=== PATIENT | female | born 1985 | race Caucasian/White ===

== ENCOUNTER 2022-05-05 17:54 | Observation (INO) | payer BC ==
[~2022-05-05] VITALS: Ht 160 cm; Wt 57.6 kg
[2022-05-05 18:00] VITALS: BP 119/77
[2022-05-05 18:38] LABS: BILIRUBIN,URINE NEGATIVE (NEGATIVE); COLOR,URINE YELLOW (YELLOW); GLUCOSE, URINE (UA) NEGATIVE (NEGATIVE); KETONES,URINE NEGATIVE (NEGATIVE); LEUKOCYTE ESTERASE ,URINE NEGATIVE (NEGATIVE); NITRATE,URINE NEGATIVE (NEGATIVE); OCCULT BLOOD,URINE LARGE (NEGATIVE); PH,URINE 6.5 (5.0-8.0); PROTEIN,URINE NEGATIVE (NEGATIVE); UROBILINOGEN,URINE 0.2 mg/dL (0.2-1.0)
[2022-05-05 18:50] LABS: APPEARANCE,URINE HAZY (CLEAR)
[2022-05-05 20:57] LABS: BACTERIA,URINE Few /HPF (None Seen); RBC,URINE None Seen /HPF (0-1); WBC,URINE 0-1 /HPF (0-1)
== END 2022-05-05 19:40 | disposition home or self-care (01) ==
LOC: EDH 17:54 → LDH 18:15
PROVIDERS: ADMIT Obstetrics & Gynecology; ATTEND Obstetrics & Gynecology
DX: Z34.83 Encounter for supervision of other normal pregnancy, third trimester (principal); Z3A.39 39 weeks gestation of pregnancy
CPT/HCPCS: 59025; 81001; G0378; G0379

== ENCOUNTER 2022-05-10 21:27 | Inpatient (IN) | payer BC ==
[~2022-05-10] VITALS: Ht 160 cm; Wt 58.1 kg
[2022-05-10] MEDS ORDERED: DINOPROSTONE 10 MG VAGINAL SUPP VG SCH (21:30)
[2022-05-10] MEDS ORDERED: PROMETHAZINE HCL 25 MG/ML 1ML AMPULE IM PRN (21:30)
[2022-05-10] MEDS ORDERED: ROPIVACAINE 0.2% 100ML VIAL 100 ML EP SCH (21:30)
[2022-05-10] MEDS ORDERED: NALOXONE HCL 0.4 MG/1 ML ML IV PRN (21:30)
[2022-05-10] MEDS ORDERED: EPHEDRINE SULFATE 50 MG/ML AMPULE IVP PRN (21:30)
[2022-05-10] MEDS ORDERED: LACTATED RINGERS 500 ML 500 ML IV PRN (21:30)
[2022-05-10] MEDS ORDERED: MEPERIDINE-PF 50 MG/ML SYG IVP PRN (21:30)
[2022-05-10] MEDS ORDERED: PREN-196 PO (22:19)
[2022-05-10] MEDS: LACTATED RINGERS 1000ML 1,000 ML IV PRN (23:01)
[2022-05-10 23:24] LABS: MEAN CORPUSCULAR HEMOGLOBIN 28.8 pg (27.0-33.0); MEAN CORPUSCULAR HGB CONC 33.3 g/dL (32.0-36.0); MEAN CORPUSCULAR VOLUME 86.3 fL (79-99); RED BLOOD CELL COUNT(AUTO) 4.17 MIL/uL (4.00-5.50); WHITE BLOOD COUNT (AUTO) 9.8 K/uL (4.8-10.8)
[2022-05-10 23:27] LABS: APPEARANCE,URINE SL CLOUDY (CLEAR); BILIRUBIN,URINE NEGATIVE (NEGATIVE); COLOR,URINE YELLOW (YELLOW); GLUCOSE, URINE (UA) NEGATIVE (NEGATIVE); KETONES,URINE NEGATIVE (NEGATIVE); LEUKOCYTE ESTERASE ,URINE NEGATIVE (NEGATIVE); NITRATE,URINE NEGATIVE (NEGATIVE); OCCULT BLOOD,URINE NEGATIVE (NEGATIVE); PROTEIN,URINE NEGATIVE (NEGATIVE); UROBILINOGEN,URINE 0.2 mg/dL (0.2-1.0)
[2022-05-10 23:32] LABS: RBC,URINE None Seen /HPF (0-1); WBC,URINE 0-1 /HPF (0-1)
[2022-05-10 23:33] LABS: AMORPHOUS SEDIMENT,UR Moderate /LPF (None Seen); BACTERIA,URINE Few /HPF (None Seen); SQUAMOUS EPITHELIAL CELL,UR 0-2 /HPF (0-2)
[2022-05-11] MEDS: LACTATED RINGERS 1000ML 1,000 ML IV PRN ×2 (01:40→09:48)
[2022-05-11] MEDS ORDERED: OXYTOCIN-LR 20 UNITS/1000 ML 1,000 ML IV SCH ×2 (04:00→12:30)
[2022-05-11 10:13] LABS: RAPID PLASMA REAGIN NONREACTIVE (NONREACTIVE)
[2022-05-11] MEDS ORDERED: DIPH,PERTUSS(ACELL),TET VAC/PF 0.5 ML VIAL IM PRN (12:30)
[2022-05-11] MEDS ORDERED: MEASLES/MUMPS/RUBELLA VACCINE, LIVE 0.5 ML/VIAL SQ PRN (12:30)
[2022-05-11] MEDS ORDERED: ACETAMINOPHEN 325 MG TAB PO PRN (12:30)
[2022-05-11] MEDS ORDERED: ACETAMINOPHEN WITH CODEINE 1 TAB TAB PO PRN (12:30)
[2022-05-11] MEDS ORDERED: BENZOCAINE/LANOLIN/ALOE VERA 60 ML AEROSOL TP PRN (12:30)
[2022-05-11] MEDS ORDERED: LANOLIN 30GM OINTMENT TP PRN (12:30)
[2022-05-11] MEDS ORDERED: WITCH HAZEL 1 PAD TP PRN (12:30)
[2022-05-11 13:30] VITALS: BP 128/80
[2022-05-11] MEDS: IBUPROFEN 600 MG TABLET PO PRN ×2 (14:46→20:43)
[2022-05-11 16:27] VITALS: BP 134/77
[2022-05-11 19:10] VITALS: BP 122/78
[2022-05-11] MEDS: DOCUSATE SODIUM 100 MG CAP PO SCH (20:43)
[2022-05-11 22:50] VITALS: BP 116/63
[2022-05-12 02:50] VITALS: BP 102/63
[2022-05-12] MEDS: IBUPROFEN 600 MG TABLET PO PRN (06:29)
[2022-05-12 06:35] LABS: HEMATOCRIT 33.9 % (36-48); MEAN CORPUSCULAR HEMOGLOBIN 28.7 pg (27.0-33.0); MEAN CORPUSCULAR HGB CONC 33.3 g/dL (32.0-36.0); RED BLOOD CELL COUNT(AUTO) 3.94 MIL/uL (4.00-5.50); RED CELL DISTRIBUTION WIDTH 14.2 % (11.0-15.5); WHITE BLOOD COUNT (AUTO) 12.2 K/uL (4.8-10.8)
[2022-05-12 06:49] VITALS: BP 111/67
[2022-05-12] MEDS: DOCUSATE SODIUM 100 MG CAP PO SCH (07:58)
== END 2022-05-12 13:20 | disposition home or self-care (01) | DRG 807 ==
LOC: LDH 21:27 → WSH 05-11 13:30
PROVIDERS: ADMIT Obstetrics & Gynecology; ATTEND Obstetrics & Gynecology
PROC: 10E0XZZ Delivery of Products of Conception, External Approach (ICD-10-PCS; principal; 2022-05-11)
PROC: 0KQM0ZZ Repair Perineum Muscle, Open Approach (ICD-10-PCS; 2022-05-11)
PROC: 10907ZC Drainage of Amniotic Fluid, Therapeutic from Products of Conception, Via Natural or Artificial Opening (ICD-10-PCS; 2022-05-11)
PROC: 3E0P7VZ Introduction of Hormone into Female Reproductive, Via Natural or Artificial Opening (ICD-10-PCS; 2022-05-11)
DX: O69.81X0 Labor and delivery complicated by cord around neck, without compression, not applicable or unspecified (principal); Z37.0 Single live birth; O70.1 Second degree perineal laceration during delivery; Z3A.40 40 weeks gestation of pregnancy
CPT/HCPCS: 36415; 81001; 85027; 86592; 86701; 86850; 86900; 86901; 87340; 87390; 90715; G0378; J2590; J7120